=== PATIENT | female | born 1945 | race Caucasian/White ===

== ENCOUNTER → 2016-10-17 | Outpatient (CLI) | payer MEDICARE, BC ==
[~2016-10-17] MED LIST: ACTOS30 MG PO; ASTELIN NASAL S34 ML NS; ATENOLOL50 MG PO; BENICAR; BENICAR 20MG TA20 MG PO; COMBIRESP IH; COZAAR100 MG PO; FLAX SEED OIL1000 M1 PO; GLUCOSAMINE & C1 CA1 PO; LEVEMIR100 U/ML SC; LIP PO; LUTEIN20 MG PO; MULTI VITAMINS1 TAB PO; NASONEX SPRAY17 GM NS; OMEGA-3 FISH1200 MG PO; PROCARDIA XL30 MG PO; PROZAC20 MG PO; RT ADVAIR 228 DISKUS IH; SYNTHROID0.075 MG/T PO; SYNTHROID0.175 MG PO; SYNTHROID0.2 M1 PO; TRILIPIX 135MG PO; VESICARE10 MG PO; VESICARE5 MG PO; VITAMIN C500 MG PO; ZANTAC 150150 MG PO; ZANTAC 300300 MG PO; ZYRTEC 10MG10 MG PO
== END ==
LOC: MC.RAD 10:50
DX: Z12.31 Encounter for screening mammogram for malignant neoplasm of breast (principal)

== ENCOUNTER → 2017-10-31 | Outpatient (CLI) | payer MEDICARE, BC | LOC: MC.RAD 10:59 | DX: Z12.31 Encounter for screening mammogram for malignant neoplasm of breast (principal) ==

== ENCOUNTER → 2018-04-17 | Outpatient (CLI) | payer MEDICARE, BC ==
[2018-04-17 07:16] LABS: ARTERIAL BLD GAS O2 SATURATION 89.2 % (92-100); ARTERIAL BLD GAS TCO2 CT 31.9; ARTERIAL BLOOD GAS BASE EXCESS 3.1 (-2-2); ARTERIAL BLOOD GAS HCO3 30.2 meq/L (22-26); ARTERIAL BLOOD GAS PCO2 55.9 mmHg (35-45); ARTERIAL BLOOD GAS pH 7.35 (7.35-7.45)
== END ==
LOC: COL.PUL 06:52
PROVIDERS: Internal Medicine Pulmonary Disease
DX: R06.02 Shortness of breath (principal)